=== PATIENT | female | born 1950 | race Caucasian/White ===

== ENCOUNTER → 2016-09-08 | Outpatient (CLI) | payer OTHER | LOC: FIMAGING 11:05 | PROVIDERS: ATTEND Family Medicine | DX: N60.12 Diffuse cystic mastopathy of left breast (principal) ==

== ENCOUNTER → 2018-06-28 | Outpatient (CLI) | payer OTHER | LOC: FIMAGING 08:56 | PROVIDERS: ATTEND Family Medicine | DX: Z12.31 Encounter for screening mammogram for malignant neoplasm of breast (principal); Z80.3 Family history of malignant neoplasm of breast ==

== ENCOUNTER → 2018-09-13 | Outpatient (CLI) | payer OTHER | LOC: FIMAGING 10:14 ==